=== PATIENT | male | born 1975 ===

== ENCOUNTER 2024-12-27 16:12 | Outpatient (RCR) | payer OTHER, SELFPAY | END 2024-12-27 23:59 | disposition home or self-care (01) | LOC: ROT 16:12 | PROVIDERS: ATTENDING PHYSICIAN Physician Assistant Surgical; FAMILY PHYSICIAN Internal Medicine | DX: Z47.89 Encounter for other orthopedic aftercare (principal); Z73.6 Limitation of activities due to disability; M25.542 Pain in joints of left hand; M25.642 Stiffness of left hand, not elsewhere classified; M79.89 Other specified soft tissue disorders; V49.60XD Unspecified car occupant injured in collision with unspecified motor vehicles in traffic accident, subsequent encounter | CPT/HCPCS: 97010; 97110; 97140; 97166; 97535; 97760 ==